=== PATIENT | female | born 1990 | race Caucasian/White ===

== ENCOUNTER 2017-06-13 16:08 | Outpatient (CLI) | END 2017-06-13 18:00 | disposition home or self-care (01) ==

== ENCOUNTER 2017-09-02 19:25 | Outpatient (CLI) | END 2017-09-02 22:05 | disposition home or self-care (01) ==

== ENCOUNTER 2017-09-14 06:35 | Inpatient (IN) | END 2017-09-17 13:30 | disposition home or self-care (01) | DRG 766 ==

== ENCOUNTER 2018-09-02 10:35 | Emergency (ER) | payer OTHER ==
[~2018-09-02] VITALS: Ht 160 cm; Wt 126.3 kg
[~2018-09-02 10:35] MED LIST: PREN1TAB49 PO
[2018-09-02 10:43] VITALS: BP 125/64; PULSE 70; RESP 18; Ht 160 cm; Wt 126.3 kg
[2018-09-02] MEDS ORDERED: KETOROLAC 30 MG INJ IM STA (12:20)
[2018-09-02] MEDS ORDERED: METHOCARBAMOL 750 MG TAB PO ONE (12:30)
[2018-09-02] MEDS ORDERED: DEXAMETHASONE 10 MG/ML 1 ML INJ IM ONE (12:30)
--- NOTE | 2018-09-02 12:45 | ERD ---
ER Documentation Chief Complaint Chief Complaint PT HAS BI-LATERAL BACK PAIN 7/ 2 WEEKS , INCREASING X 2 DAYS HPI 28-year-old female no significant past medical history presents for low back pain x2 weeks. Patient states that the pain is worsening for the past 3 days. She has not seen any provider for her issue. She states that the pain is 7 out of 10. States that the pain is worse at night. Pain is diffusely noted over her low back. There is no radiation. Pain is described as sharp. Denies any loss of bowel bladder function. She has had prior back pain however she states that the pain has not lasted as long in the past. Denies chest pain or shortness of breath. Denies any recent infection, denies recent back procedure, denies history of cancer. ROS All systems reviewed and are negative except as per history of present illness. Medications Home Meds Active Scripts Methocarbamol* (Robaxin*) 750 Mg Tablet, 750 MG PO TID PRN for MUSCLE SPASMS, #30 TAB Prov:RODO DE LA CRUZ DO 09/02/18 Acetaminophen* (Acetaminophen*) 500 MG Extra Strength Tablet, 500 MG PO Q4H PRN for PAIN AND OR ELEVATED TEMP, #30 TAB Prov:RODO DE LA CRUZ DO 09/02/18 Ibuprofen* (Motrin*) 600 Mg Tab, 600 MG PO Q6H PRN for PAIN AND OR ELEVATED TEMP, #30 TAB Prov:RODO DE LA CRUZ DO 09/02/18 Reported Medications Vits W-Ca,Fe,Fa(<1MG) () 1 Tab Tablet, 1 TAB PO DAILY 12/21/11 Allergies Allergies: Coded Allergies: codeine (Verified Allergy, Mild, Itching, Rash, 09/02/18) PMhx/Soc History of Surgery: No Anesthesia Reaction: No Hx Neurological Disorder: No Hx Respiratory Disorders: No Hx Cardiac Disorders: No Hx Psychiatric Problems: No Hx Miscellaneous Medical Probl: No Hx Alcohol Use: No Hx Substance Use: No Hx Tobacco Use: No Smoking Status: Never smoker Physical Exam Vitals Vital Signs Date Temp Pulse Resp B/P (MAP) Pulse Ox O2 O2 Flow FiO2 Time Delivery Rate 09/02/18 97.9 70 18 125/64 100 10:43 (84) Physical Exam Const: No acute distress Neck: Full range of motion. No meningismus. no midline tenderness Resp: Clear to auscultation bilaterally Cardio: Regular rate and rhythm, no murmurs, bilateral radial and dorsalis pedis pulses intact and equal Abd: Soft, non tender, non distended. Normal bowel sounds, no abdominal bruit noted Skin: No petechiae or rashes Back: no point tenderness, bilateral paravertebral muscle tenderness palpation over the lumbar spine Ext: No cyanosis, or edema, 5/5 muscle strength bilateral upper and lower extremities Neur: Awake and alert, bilateral upper and lower extremity sensation intact Psych: Normal Mood and Affect Results 24 hrs Laboratory Tests Test 09/02/18 12:28 POC Beta HCG, Qualitative NEGATIVE Current Medications Medications Dose Sig/Diego Start Time Status Last (Trade) Ordered Route PRN Stop Time Admin Dose Reason Admin Ketorolac 30 mg ONCE STAT 09/02/18 DC 09/02/18 Tromethamine IM 12:20 12:35 (Toradol) 09/02/18 12:21 750 mg ONCE ONCE 09/02/18 DC 09/02/18 Methocarbamol PO 12:30 12:57 (Robaxin) 09/02/18 12:31 10 mg ONCE ONCE 09/02/18 DC 09/02/18 Dexamethasone IM 12:30 12:35 (Decadron) 09/02/18 12:31 Procedures/MDM Medical Decision Making: Differential diagnosis includes but not limited to muscle strain, ligamentous sprain, epidural abscess, osteomyelitis, osteoarthritis, herniated disc, c ompression fracture, aortic aneurysm, kidney stone, pyelonephritis, pancreatitis. Patient appeared well on physical examination. Nontoxic appearing. Patient was neurovascularly intact Patient appeared well on physical examination. Nontoxic appearing. No recent back procedure, therefore low suspicion for epidural abscess No recent infection, therefore low suspicion for osteomyelitis No trauma, therefore low suspicion for fracture No chest pain, abdominal pain and no pulse deficits noted, therefore low susp icion for aortic dissection or pancreatitis No flank pain or fever to suggest pyelonephritis or kidney stone Patient likely has muscle strain versus ligamentous sprain ED course: Patient was given Robaxin, Toradol, steroid. Symptoms improved with treatment. Prescription(s): Patient given prescription for supportive medication(s). Patient advised to follow up with PCP in 1-2 days. Patient advised to return to ED for new or worsening symptoms. Patient stable on discharge from the ED. Disclaimer: Inadvertent spelling and grammatical errors are likely due to EHR/dictation software use and do not reflect on the overall quality of patient care. Also, please note that the electronic time recorded on this note does not necessarily reflect the actual time of the patient encounter. RODO DE LA CRUZ DO Sep 02, 2018 12:45
[2018-09-02] MEDS ORDERED: ACET-141 PO (13:18)
[2018-09-02] MEDS ORDERED: IBUP-1542 PO (13:18)
[2018-09-02] MEDS ORDERED: METH750T93 PO (13:18)
== END 2018-09-02 13:24 | disposition home or self-care (01) ==
LOC: FTE 10:35
DX: M54.5 Low back pain (principal)
CPT/HCPCS: 81025; 96372; J1100; J1885; Z7502; Z7610